=== PATIENT | female | born 1955 | race Caucasian/White ===

== ENCOUNTER 2016-09-23 11:18 | Emergency (ER) | payer SELFPAY ==
[~2016-09-23] VITALS: Ht 165.1 cm; Wt 79.1 kg
[2016-09-23 11:27] VITALS: TEMP 98.5
[2016-09-23 12:43] VITALS: BP 150/112; PULSE 80
== END 2016-09-23 12:44 | disposition home or self-care (01) ==
LOC: COL.ER 11:18
DX: R03.0 Elevated blood-pressure reading, without diagnosis of hypertension (principal)

== ENCOUNTER → 2017-09-17 | Outpatient (CLI) | payer OTHER | LOC: MC.RAD 10:40 | DX: Z12.31 Encounter for screening mammogram for malignant neoplasm of breast (principal) ==

== ENCOUNTER → 2020-11-21 | Outpatient (CLI) | payer BC | LOC: MC.RAD 09:49 | DX: Z12.31 Encounter for screening mammogram for malignant neoplasm of breast (principal) ==